=== PATIENT | female | born 1945 | race Caucasian/White ===

== ENCOUNTER 2019-05-29 12:45 | Observation (INO) | payer MEDICARE ==
[~2019-05-29] VITALS: Ht 165.1 cm; Wt 93.6 kg
[~2019-05-29 12:45] MED LIST: ASCO500 PO; CALCIT950 PO; COL-RITE50 MG PO; DOCU100 PO; ERGO50000 PO; FERR325 PO; HYDACE10B PO; HYDR1TAB94 PO; Hair, Skin & N1 EACH PO; ONDA4ODT MM; OSTEO BI-FLEX1 EAC2 PO; OXYACE5T PO; PYRI100 PO; Stool Softener100 MG PO; TAMS.4ER PO; VITAMIN B122500 MCG PO; WARF4 PO
[2019-05-29 13:09] LABS: Source, Urine Clean Catch
[2019-05-29 13:17] LABS: Bilirubin, Urine Neg (Neg); Blood, Urine Neg (Neg); Glucose Qualitative, Urine Neg (Neg); Ketones, Urine Neg (Neg); Leukocyte Esterase, Urine 2+ (Neg); Nitrite, Urine Neg (Neg); Protein, Urine Neg (Neg); Specific Gravity, Urine 1.015 (1.003-1.022); Urobilinogen, Urine NORM (Normal)
[2019-05-29 13:25] LABS: Appearance, Urine Clear (Clear); Color, Urine Yellow (P-Yellow)
[2019-05-29 13:27] LABS: Bacteria Rare /hpf; Squamous Epithelial Cells Few /hpf (Few); Transitional Epithelial Cells Few /hpf (0-Rare)
[2019-05-29 13:49] LABS: BASOPHILS ABSOLUTE AUTO 0.07 K/mm3 (0.00-0.23); BASOPHILS PERCENT AUTO 1 % (0-2); EOSINOPHILS ABSOLUTE AUTO 0.28 K/mm3 (0.00-0.68); EOSINOPHILS PERCENT AUTO 3 % (0-6); Hematocrit 39.7 % (33.0-51.0); Hemoglobin 12.7 g/dL (11.5-16.0); IMMATURE GRAN ABSOLUTE AUTO 0.03 K/mm3 (0.00-0.10); IMMATURE GRAN PERCENT AUTO 0 % (0-1); LYMPHOCYTES ABSOLUTE AUTO 2.04 K/mm3 (0.84-5.20); LYMPHOCYTES PERCENT AUTO 23 % (21-46); MONOCYTES ABSOLUTE AUTO 0.47 K/mm3 (0.16-1.47); MONOCYTES PERCENT AUTO 5 % (4-13); Mean Corpuscular HGB 31.1 pg (26.0-34.0); Mean Corpuscular Volume 97 fL (80-100); Mean Platelet Volume 11.9 fL (9.1-12.4); NEUTROPHILS ABSOLUTE AUTO 6.07 K/mm3 (1.96-9.15); NEUTROPHILS PERCENT AUTO 68 % (41-73); Platelet Count 233 K/mm3 (150-400); RDW Coefficient Variation 12.5 % (11.7-14.2); RDW Standard Deviation 44.8 fL (35.1-46.3); Red Blood Cell Count 4.09 M/mm3 (3.80-5.20); White Blood Cell Count 8.96 K/mm3 (4.00-11.30)
[2019-05-29] MEDS ORDERED: Hydrochloroth12.5 MG PO ×2 (14:06→15:38)
[2019-05-29 14:10] LABS: Alanine Aminotransfer (ALT/SGP 22 U/L (12-78); Albumin, Blood 3.7 g/dL (3.4-5.0); Albumin/Globulin Ratio 1.1 (0.8-1.8); Alk Phos 71 U/L (50-136); Anion Gap 5 mmol/L (6-16); Aspartate Aminotrans (AST/SGOT 17 U/L (12-37); Bilirubin, Total 0.3 mg/dL (0.1-1.0); Blood Urea Nitrogen 19 mg/dL (8-24); Bun/Creatinine Ratio 27.5 (12.0-20.0); CO2, Blood 26 mmol/L (21-32); Calcium, Blood 8.7 mg/dL (8.5-10.1); Chloride, Blood 109 mmol/L (98-108); Creatinine, Blood 0.69 mg/dL (0.40-1.00); Globulin, Blood 3.3 g/dL (2.2-4.0); Glomerular Filtration Rate >60 (60-); Glucose, Blood 105 mg/dL (70-99); Potassium, Blood 3.8 mmol/L (3.5-5.5); Sodium, Blood 140 mmol/L (136-145)
[2019-05-29] MEDS ORDERED: Prinivil5 MG PO (15:37)
[2019-05-29] MEDS ORDERED: PRAVASTATIN SOD10 MG PO (15:38)
[2019-05-29] MEDS ORDERED: TRAZ50 PO (15:41)
[2019-05-29] MEDS ORDERED: Aspir 8181 MG PO (15:55)
--- NOTE | 2019-05-29 18:16 | NUR ---
Echocardiogram completed.
--- NOTE | 2019-05-29 18:20 | NUR ---
SUMMARY PT ADMITTED FROM THE ER FOR TIA/CVA, PT IS ALERT AND ORIENTED, PLEASANT AND COOPERATIVE, NO DEFECITS SEEN, PT UP TO THE BATHROOM WITH 1 ASSIST, WILL CONT TO MONITOR
[2019-05-30 05:07] LABS: BASOPHILS ABSOLUTE AUTO 0.06 K/mm3 (0.00-0.23); BASOPHILS PERCENT AUTO 1 % (0-2); EOSINOPHILS ABSOLUTE AUTO 0.28 K/mm3 (0.00-0.68); EOSINOPHILS PERCENT AUTO 4 % (0-6); Hematocrit 37.6 % (33.0-51.0); IMMATURE GRAN ABSOLUTE AUTO 0.01 K/mm3 (0.00-0.10); IMMATURE GRAN PERCENT AUTO 0 % (0-1); LYMPHOCYTES ABSOLUTE AUTO 1.75 K/mm3 (0.84-5.20); LYMPHOCYTES PERCENT AUTO 27 % (21-46); MONOCYTES ABSOLUTE AUTO 0.36 K/mm3 (0.16-1.47); MONOCYTES PERCENT AUTO 6 % (4-13); Mean Corpuscular HGB 30.7 pg (26.0-34.0); Mean Corpuscular HGB Conc 31.9 g/dL (31.5-36.5); Mean Corpuscular Volume 96 fL (80-100); Mean Platelet Volume 11.7 fL (9.1-12.4); NEUTROPHILS ABSOLUTE AUTO 3.95 K/mm3 (1.96-9.15); NEUTROPHILS PERCENT AUTO 62 % (41-73); Platelet Count 196 K/mm3 (150-400); RDW Coefficient Variation 12.8 % (11.7-14.2); RDW Standard Deviation 45.2 fL (35.1-46.3); Red Blood Cell Count 3.91 M/mm3 (3.80-5.20); White Blood Cell Count 6.41 K/mm3 (4.00-11.30)
[2019-05-30 05:36] LABS: Alanine Aminotransfer (ALT/SGP 18 U/L (12-78); Albumin, Blood 3.3 g/dL (3.4-5.0); Albumin/Globulin Ratio 1.1 (0.8-1.8); Alk Phos 63 U/L (50-136); Anion Gap 4 mmol/L (6-16); Aspartate Aminotrans (AST/SGOT 13 U/L (12-37); Bilirubin, Total 0.4 mg/dL (0.1-1.0); Blood Urea Nitrogen 17 mg/dL (8-24); Bun/Creatinine Ratio 20.5 (12.0-20.0); CO2, Blood 28 mmol/L (21-32); Calcium, Blood 8.5 mg/dL (8.5-10.1); Chloride, Blood 111 mmol/L (98-108); Creatinine, Blood 0.83 mg/dL (0.40-1.00); Globulin, Blood 2.9 g/dL (2.2-4.0); Glomerular Filtration Rate >60 (60-); Glucose, Blood 95 mg/dL (70-99); Potassium, Blood 4.1 mmol/L (3.5-5.5); Sodium, Blood 143 mmol/L (136-145); Total Protein, Blood 6.2 g/dL (6.4-8.2)
--- NOTE | 2019-05-30 05:58 | NUR ---
SHIFT SUMMARY: PRANAY HAS A GOOD NIGHT WITH NO ACUTE CHANGES, WEAKNESS HAS IMPROVED. SHE WAS ABLE TO GET UP TO THE BATHROOM WITH STAND BY ASSIST. SHE HAS HAD NO RETURN OF ANY OF THE PREVIOUS SYMPTOMS. MEDS WERE GIVEN PER EMAR. IV INFUSED WITH NO PROBLEMS THROUGHOUT THE NIGHT. CALL LIGHT REMAINED WITH IN REACH. WILL REPORT TO DAY SHIFT RN.
[2019-05-30] MEDS ORDERED: CLOP75 PO (16:21)
[2019-05-30] MEDS ORDERED: ROSUVASTATIN CA20 MG PO (16:21)
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
== END 2019-05-30 16:33 | disposition home or self-care (01) ==
LOC: ER 12:45 → MEDS 12:46
PROVIDERS: Physician Assistant; ADMIT Family Medicine
DX: I63.81 Other cerebral infarction due to occlusion or stenosis of small artery (principal); G81.91 Hemiplegia, unspecified affecting right dominant side; G45.9 Transient cerebral ischemic attack, unspecified; I10 Essential (primary) hypertension; K29.60 Other gastritis without bleeding; G47.33 Obstructive sleep apnea (adult) (pediatric); Z87.442 Personal history of urinary calculi; Z87.891 Personal history of nicotine dependence; Z88.0 Allergy status to penicillin; Z79.899 Other long term (current) drug therapy; Z79.82 Long term (current) use of aspirin
CPT/HCPCS: 36415; 70450; 70551; 71046; 80053; 81001; 85025; 87086; 93005; 93010; 93306; 93880; 96372; 97116; 97161; 99285-25; G0378; J1650; J7030

== ENCOUNTER → 2020-01-07 | Outpatient (CLI) | payer MEDICARE ==
[~2020-01-07] MED LIST changes: +Aspir 8181 MG PO; +CLOP75 PO; +Hydrochloroth12.5 MG PO; +PRAVASTATIN SOD10 MG PO; +Prinivil5 MG PO; +ROSUVASTATIN CA20 MG PO; +TRAZ50 PO
== END ==
LOC: LAB SHORT 07:44 → LAB 07:44
DX: D48.5 Neoplasm of uncertain behavior of skin (principal); L30.9 Dermatitis, unspecified
CPT/HCPCS: 88312

== ENCOUNTER 2022-02-25 22:53 | Emergency (ER) | payer MEDICARE ==
[~2022-02-25] VITALS: Ht 167.6 cm; Wt 97.5 kg
[~2022-02-25 22:53] MED LIST changes: +MOTION RELIEF25 MG PO
== END 2022-02-26 00:49 | disposition home or self-care (01) ==
LOC: ER 22:53
DX: R42 Dizziness and giddiness (principal); Z87.891 Personal history of nicotine dependence; Z79.899 Other long term (current) drug therapy
CPT/HCPCS: 99284

== ENCOUNTER → 2022-05-09 | Outpatient (CLI) | payer MEDICARE ==
[2022-05-09 13:24] LABS: Stool Occult Bld Immuno 1 Negative (NEGATIVE)
== END | disposition home or self-care (01) ==
LOC: LAB 10:34 → LAB SHORT 10:34
PROVIDERS: Hospitalist
DX: D64.9 Anemia, unspecified (principal)
CPT/HCPCS: G0328

== ENCOUNTER → 2022-06-17 | Outpatient (CLI) | payer MEDICARE ==
[~2022-06-17] MED LIST changes: +VALA500; +ZOLP5
[2022-06-19 09:47] LABS: Stool Occult Bld Immuno 1 Negative (NEGATIVE); Stool Occult Bld Immuno 2 Negative (NEGATIVE)
== END | disposition home or self-care (01) ==
LOC: LAB SHORT 06-16 13:41 → LAB 13:41 → LAB SHORT 06-18 13:41
PROVIDERS: Internal Medicine Gastroenterology
DX: D64.9 Anemia, unspecified (principal)
CPT/HCPCS: 82274

== ENCOUNTER 2022-06-25 07:44 | Day surgery (SDC) | payer MEDICARE ==
[~2022-06-25] VITALS: Ht 165.1 cm; Wt 93.4 kg
[~2022-06-25 07:44] MED LIST changes: -VALA500; -ZOLP5
[2022-06-25] MEDS ORDERED: VALA500 (08:11)
[2022-06-25] MEDS ORDERED: ZOLP5 (08:12)
== END 2022-06-25 09:48 | disposition home or self-care (01) ==
LOC: ORSCSDS 07:44
PROVIDERS: Internal Medicine Gastroenterology
PROC: 0DBL8ZX Excision of Transverse Colon, Via Natural or Artificial Opening Endoscopic, Diagnostic (ICD-10-PCS; principal; 2022-06-25 09:00)
DX: D64.9 Anemia, unspecified (principal); Z86.010 Personal history of colon polyps; D12.3 Benign neoplasm of transverse colon; K57.30 Diverticulosis of large intestine without perforation or abscess without bleeding; G47.30 Sleep apnea, unspecified; Z87.891 Personal history of nicotine dependence; E66.9 Obesity, unspecified; Z68.35 Body mass index [BMI] 35.0-35.9, adult; Z79.899 Other long term (current) drug therapy
CPT/HCPCS: 88305; J2704; J7120